=== PATIENT | male | born 1950 | race Caucasian/White ===

== ENCOUNTER 2024-04-29 11:17 | Emergency (ER) | payer MEDICARE, BC, SELFPAY ==
[2024-04-29 11:20] VITALS: BP 155/91
[2024-04-29 11:30] VITALS: BMI 32.9
[2024-04-29 11:43] LABS: % Basophils 0.7 % (0-2); % Eosinophils 1.9 % (0-6); % Immature Granulocytes 0.2 % (0-0.5); % Lymphocytes 30.7 % (20.5-51.1); % Monocytes 12.5 % (1.7-9.3); Absolute Eosinophils 0.1 10^3/uL (0-0.7); Absolute Lymphocytes 1.7 10^3/uL (1.2-3.4); Absolute Monocytes 0.7 10^3/uL (0.1-0.6); Absolute Neutrophils 2.9 10^3/uL (1.4-6.5); Hemoglobin 13.9 g/dL (13.0-18.0); Mean Corp Hgb Conc. 33.9 g/dL (33.0-37.0); Mean Corpuscular Hgb 31.3 pg (27.0-31.0); Mean Corpuscular Volume 92.3 fL (80.0-94.0); Mean Platelet Volume 8.9 fL (7.4-10.4); Nucleated Red Blood Cells % 0 % (-); Platelet Count 163 10^3/uL (130-400); Red Blood Cell Count 4.44 10^6/uL (4.70-6.10); Red Cell Dist. Width 13.5 % (11.5-14.5); White Blood Cell Count 5.4 10^3/uL (4.8-10.8)
[2024-04-29 12:01] LABS: ALT (SGPT) 22 U/L (0-50); AST (SGOT) 25 U/L (17-59); Albumin 4.5 g/dl (3.5-5.0); Alkaline Phosphatase 72 U/L (38-126); Blood Urea Nitrogen 22 mg/dl (9-20); Calcium 9.9 mg/dl (8.4-10.2); Carbon Dioxide 25 mmol/L (22-30); Chloride 106 mmol/L (98-107); Estimated Creatinine Clearance 78 ml/min; Glucose 97 mg/dl (70-99); Potassium 4.6 mmol/L (3.5-5.1); Sodium 142 mmol/L (135-145); Total Bilirubin 0.8 mg/dl (0.2-1.3); eGFR > 60.00
--- NOTE | 2024-04-29 12:42 | ED.GENMED ---
History of Present Illness
General
Chief Complaint: Dizziness
Time Seen by Provider: 04/29/24 12:24
History of Present Illness
History of Present Illness:
73-year-old male presents emergency department for evaluation of persistent nonresolving dizziness ongoing for the past 3 months. He states the dizziness is occurring on a daily basis with no obvious provoking or palliating factors. Denies
vertigo, states he feels as though he is lightheaded. Does seem to be abruptly worse when he stands but this is improved, feels unsteady when walking but has not fallen at all. No headaches, vision changes, neck pain, chest pain, or shortness of
breath
Review of Systems
Review of Systems
Allergies reviewed?: Yes
All Other Systems: ROS reviewed and negative except as documented in HPI and ROS
Phy Exam
Physical Exam
Physical Exam:
GEN: Well appearing, NAD, WDWN
HEENT: Oral mucosa moist, no scleral icterus, no nasal congestion
Cardiac: Regular rate
Lung: No respiratory distress, no tachypnea
MSK: No gross deformity or injuries
Skin: Good color, no pallor or jaundice, no rashes
Neuro: AO x3; CN II-XII grossly intact. BUE strength 5/5 in all dominique, sensation intact and symmetric. BLE strength 5/5 in all dominique, sensation intact and symmetric. Gait is steady without deficit
Psych: Calm, cooperative
Course
Orders/Labs/Results
Orders:
Orders
04/29/24 11:38
CMP [Comprehensive Metabolic Panel] Urgent
Complete Blood Count/With Diff Urgent
04/29/24 12:49
CT Head W/o Iv Contrast Urgent
Comment:
Reason For Exam: chronic dizziness
04/29/24 14:53
CT Head & Neck Angio W/wo IV Urgent
Comment:
Reason For Exam: dizziness
Abnormal Lab Results
04/29/24
11:38
RBC 4.44 L 10^6/uL
(4.70-6.10)
MCH 31.3 H pg
(27.0-31.0)
Absolute Monos (auto) 0.7 H 10^3/uL
(0.1-0.6)
Monocytes % 12.5 H %
(1.7-9.3)
BUN 22 H mg/dl
(9-20)
04/29/24 11:38
04/29/24 11:38
Vital Signs
Initial and Last Documented VS:
Initial Vital Signs
Temp Pulse Resp BP Pulse Ox
98.1 F 69 16 155/91 100
04/29/24 11:20 04/29/24 11:20 04/29/24 11:20 04/29/24 11:20 04/29/24 11:20
Last Documented Vital Signs
Temp Pulse Resp BP Pulse Ox
98.1 F 69 16 131/74 98
04/29/24 11:20 04/29/24 11:20 04/29/24 11:20 04/29/24 15:00 04/29/24 15:00
MDM/Problems Addressed
MDM/Problems Addressed:
CT of the head was initially taken to rule out mass lesion this is reassuring. Given the persistence of the dizziness although quite vague a follow-up CT angiogram of the head and neck was obtained to evaluate for vertebral artery dissection this
was also reassuring. Certainly could be vestibular however does not appear to be vertiginous. He has scheduled follow-up with ear nose and throat which I feel is potentially beneficial. Given that he can ambulate and has no other neurologic
deficits I feel he is suitable for continued outpatient workup
*Critical Care Note
Total Time (30-74mins, 75-104mins- exclusive of procedures): Not Applicable
ED Attending Note
-
Portions of this chart may have been created with voice recognition software.� Occasional wrong word or��sound alike� substitutions may have occurred due to the inherent limitations of voice recognition software.
Discharge Plan
Departure
Patient Disposition: Home (Routine Discharge)
Date of Disposition: 04/29/24
Time of Disposition: 17:08
Patient with high blood pressure during this ER visit?: No
Discharge Problem:
Dizziness
Instructions: Dizziness
Prescriptions:
No Action
hydrocodone-acetaminophen [Vicodin] 1 EACH tablet
1 ea PO Q4HPRN PRN (Reason: pain) Qty: 20 0RF
Referrals:
Jorgito Givens MD [Family Provider] -
Activity Restrictions/Additional Instructions:
Contact your primary doctor regarding a possible MRI
Interventions
Interventions:
*Risk Screen - Suicide Last Done: 04/29/24 11:20
*General Assessment Last Done: 04/29/24 11:20
*Neglect/Abuse Screening Last Done: 04/29/24 11:20
ED- Fall Risk Assessment Last Done: 04/29/24 11:30
*ED COVID-19 Vaccine History Last Done: 04/29/24 11:20
*Nursing Disposition Last Done: 04/29/24 17:17
ED- Neurological Assessment Last Done: 04/29/24 11:30
ED Swallowing Screen Last Done: 04/29/24 11:30
Discharge Date and Time
Discharge Date/Time: 04/29/24 17:18
Print Language: [place]ET[place]
[2024-04-29 14:16] VITALS: BP 144/78
[2024-04-29 15:00] VITALS: BP 131/74
== END 2024-04-29 17:18 | disposition home or self-care (01) ==
LOC: EMR 11:17
PROVIDERS: EMERGENCY PHYSICIAN Emergency Medicine; FAMILY PHYSICIAN Family Medicine
DX: R42 Dizziness and giddiness (principal)
CPT/HCPCS: 99284; 70450; 70496; 70498; 80053; 85025; Q9967

== ENCOUNTER → 2024-05-17 14:13 | Outpatient (REF) | payer MEDICARE, BC, SELFPAY | LOC: PAVMRI 14:13 | PROVIDERS: ATTENDING PHYSICIAN Otolaryngology; FAMILY PHYSICIAN Family Medicine | DX: R42 Dizziness and giddiness (principal) | CPT/HCPCS: 70553; A9575 ==

== ENCOUNTER → 2025-02-14 16:25 | Outpatient (REF) | payer MEDICARE, BC, SELFPAY | LOC: RAD 16:25 | PROVIDERS: ATTENDING PHYSICIAN Family Medicine | DX: M79.604 Pain in right leg (principal); L03.90 Cellulitis, unspecified | CPT/HCPCS: 93971 ==